=== PATIENT | male | born 1985 | race Caucasian/White ===

== ENCOUNTER 2019-01-24 10:03 | Emergency (ER) | payer OTHER ==
[2019-01-24] MEDS: ONDANSETRON 4 MG INJ IV (10:54)
[2019-01-24] MEDS: morphine 4 MG/ML VIAL IV (10:54)
[2019-01-24] MEDS: SOD CHLORIDE 0.9% 1,000 ML IV (10:54)
[2019-01-24 10:58] LABS: ADD MAN DIFF? NO
[2019-01-24 11:02] LABS: WHITE BLOOD COUNT 14.8 10^3/ul (4.8-10.8)
[2019-01-24 11:02] LABS: BASOPHILS % 0.2 % (0.0-2.0); EOSINOPHILS % 0.1 % (0.0-7.0); HEMATOCRIT 44.2 % (42.0-52.0); HEMOGLOBIN 15.4 g/dl (14.0-18.0); LYMPHOCYTES # 1.9 10^3/ul (0.8-2.9); LYMPHOCYTES % 12.7 % (15.0-51.0); MEAN CORPUSCULAR HEMOGLOBIN 30.3 pg (29.0-33.0); MEAN CORPUSCULAR HGB CONC 34.8 g/dl (32.0-37.0); MEAN CORPUSCULAR VOLUME 86.8 fl (82.0-101.0); MEAN PLATELET VOLUME 8.7 fl (7.4-10.4); MONOCYTE # 0.7 10^3/ul (0.3-0.9); MONOCYTES % 4.4 % (0.0-11.0); NEUTROPHIL # 12.2 10^3/ul (1.6-7.5); NEUTROPHILS % 82.3 % (39.0-77.0); PLATELET COUNT 442 10^3/UL (140-415); RED BLOOD COUNT 5.09 10^6/ul (4.70-6.10); RED CELL DISTRIBUTION WIDTH 11.6 % (11.5-14.5)
[2019-01-24] MEDS: DIPHENOXYLATE/ATROPINE TAB PO (11:02)
[2019-01-24 11:28] LABS: ALANINE AMINOTRANSFERASE 53 IU/L (13-69); ALBUMIN 5.5 g/dl (3.3-4.9); ALBUMIN/GLOBULIN RATIO 1.34; ALKALINE PHOSPHATASE 77 IU/L (42-121); ANION GAP 15 (5-13); ASPARTATE AMINO TRANSFERASE 37 IU/L (15-46); BILIRUBIN,INDIRECT 0.9 mg/dl (0-1.1); BILIRUBIN,TOTAL 0.9 mg/dl (0.2-1.3); BLOOD UREA NITROGEN 12 mg/dl (7-20); CALCIUM 10.9 mg/dl (8.4-10.2); CARBON DIOXIDE 23 mmol/L (21-31); CHLORIDE 100 mmol/L (97-110); CREATININE 0.98 mg/dl (0.61-1.24); Estimated GFR > 60 mL/min (>60); GLUCOSE 137 mg/dl (70-220); LIPASE 48 U/L (23-300); SODIUM 138 mmol/L (135-144); TOTAL PROTEIN 9.6 g/dl (6.1-8.1)
[2019-01-24] MEDS: HYDROmorphONE 0.5 MG/0.5 ML SYG IV (12:37)
[2019-01-24 13:13] LABS: ADD UMIC YES; UR ASCORBIC ACID 20 mg/dL (NEGATIVE); UR BACTERIA FEW /HPF (NONE SEEN); UR BILIRUBIN (Dip) NEGATIVE (NEGATIVE); UR BLOOD (Dip) NEGATIVE (NEGATIVE); UR CLARITY CLEAR (CLEAR); UR COLOR YELLOW (YELLOW); UR GLUCOSE (Dip) NEGATIVE (NEGATIVE); UR KETONES (Dip) 1+ mg/dL (NEGATIVE); UR LEUKOCYTE ESTERASE (Dip) NEGATIVE Leu/ul (NEGATIVE); UR MUCUS MANY /HPF (NONE SEEN); UR NITRITE (Dip) NEGATIVE (NEGATIVE); UR RBC 28 /HPF (0-5); UR TOTAL PROTEIN (Dip) 1+ mg/dl (NEGATIVE); UR UROBILINOGEN (Dip) NEGATIVE (NEGATIVE); UR WBC 1 /HPF (0-5)
== END 2019-01-24 14:42 | disposition home or self-care (01) ==
LOC: FTE 10:03
DX: R10.84 Generalized abdominal pain (principal); I10 Essential (primary) hypertension; R11.2 Nausea with vomiting, unspecified
CPT/HCPCS: 36415; 80053; 81001; 83690; 85025; 96374; 96375; 99284-25

== ENCOUNTER 2019-02-07 09:58 | Day surgery (SDC) | payer OTHER ==
[2019-02-07] MEDS ORDERED: PROPOFOL 40 ML (11:20)
== END 2019-02-07 14:25 | disposition home or self-care (01) ==
LOC: GIL 09:58
DX: K29.50 Unspecified chronic gastritis without bleeding (principal); K31.84 Gastroparesis; I10 Essential (primary) hypertension
CPT/HCPCS: 43239; 88305; 88312